=== PATIENT | male | born 1970 ===

== ENCOUNTER 2021-02-15 04:36 | Emergency (ER) | payer SELFPAY ==
[~2021-02-15 04:36] MED LIST: CALCIUM CHLORIDE 1,000 MG/10 ML SYRINGE IV ONE; EPINEPHrine 1 MG/10 ML SYRINGE ONE; SODIUM BICARB 8.4% 50 MEQ/50 ML SYRINGE IV ONE
== END 2021-02-15 08:30 ==
LOC: ED 04:36
DX: I46.9 Cardiac arrest, cause unspecified (principal)
CPT/HCPCS: 92950; 99285; J0171; J3490